=== PATIENT | male | born 1955 | race Asian ===

== ENCOUNTER 2017-12-03 06:46 | Day surgery (SDC) | payer OTHER ==
[~2017-12-03] VITALS: Ht 172.7 cm; Wt 80.5 kg
[~2017-12-03 06:46] MED LIST: AMLO-512 PO; CARV6 PO; METF500T4 PO; PRAV10TA39 PO; SODIUM CHLORIDE 0.9% 1,000 ML IV ONE
[2017-12-03] MEDS ORDERED: SODIUM CHLORIDE 0.9% 1,000 ML IV ONE (07:30)
[2017-12-03 08:35] LABS: CREATININE 3.75 mg/dL (0.60-1.30); PROTHROMBIN TIME 10.3 SEC (9.4-11.6)
[2017-12-03] MEDS ORDERED: GELATIN SPONGE,ABSORBABLE 12-7 MM TP ONE (08:47)
[2017-12-03] MEDS ORDERED: FentaNYL CITRATE-PF 100 MCG/2 ML VIAL ONE (08:48)
[2017-12-03] MEDS ORDERED: MIDAZOLAM HCL 2 MG/2 ML VIAL ONE (08:48)
[2017-12-03] MEDS ORDERED: LIDOCAINE HCL/PF 1% 30 ML VIAL ONE (08:48)
[2017-12-03] MEDS ORDERED: NALOXONE HCL 0.4 MG/ML VIAL ONE (08:52)
[2017-12-03] MEDS ORDERED: FLUMAZENIL 0.1 MG/ML 5 ML VIAL IVP ONE (08:53)
[2017-12-03] MEDS ORDERED: MIDAZOLAM HCL 2 MG/2 ML VIAL IVP ONE ×2 (09:32)
[2017-12-03] MEDS ORDERED: FentaNYL CITRATE-PF 100 MCG/2 ML VIAL IVP ONE (19:32)
== END 2017-12-03 13:15 | disposition home or self-care (01) ==
LOC: SURGERY 06:46 → EDSTATUS 09:00 → SURGERY 13:15
PROVIDERS: ATTEND Internal Medicine Nephrology
DX: I12.9 Hypertensive chronic kidney disease with stage 1 through stage 4 chronic kidney disease, or unspecified chronic kidney disease (principal); E11.22 Type 2 diabetes mellitus with diabetic chronic kidney disease; N18.3 Chronic kidney disease, stage 3 (moderate); N11.1 Chronic obstructive pyelonephritis; Z79.84 Long term (current) use of oral hypoglycemic drugs; Z79.899 Other long term (current) drug therapy; Z87.891 Personal history of nicotine dependence
CPT/HCPCS: 36415; 50200; 77012; 82565; 84520; 85610; 88300; J2250; J3010; J3490; J7030; 88305; 88313; 88346; 88348; J2310